=== PATIENT | male | born 2000 | race Caucasian/White ===

== ENCOUNTER → 2021-10-19 | Day surgery (SDC) | payer OTHER ==
[~2021-10-19] VITALS: Ht 180.3 cm; Wt 98.4 kg
[~2021-10-19] MED LIST: ACETAMINOPHEN500 M1 PO; ALLERGY RELIEF10 MG PO; ALLOPURINOL100 MG PO; CLONIDINE HCL0.2 MG PO; COLACE100 MG PO; COLCRYS0.6 MG PO; HYDRALAZINE 10M10 MG PO; HYDROXYZINE 10M10 MG PO; LAMICTAL200 MG PO; MAGNESIUM250 M1 PO; MOTRIN600 MG PO; OXY-IR 5MG5 MG PO; PROZAC40 MG PO; REXULTI3 MG PO; VENTOLIN HFA18 GM INH; VITAMIN D3 PO
== END | disposition home or self-care (01) ==
LOC: FAS 07:30
DX: K81.1 Chronic cholecystitis (principal); K66.0 Peritoneal adhesions (postprocedural) (postinfection); K82.8 Other specified diseases of gallbladder; M10.9 Gout, unspecified; J45.909 Unspecified asthma, uncomplicated; E66.9 Obesity, unspecified
CPT/HCPCS: J1100; J1170; J2250; J2405; J3010; J7120